=== PATIENT | female | born 1980 | race Caucasian/White ===

== ENCOUNTER 2018-02-18 15:04 | Emergency (ER) | payer OTHER ==
[2018-02-18 15:13] VITALS: BP 130/84
[2018-02-18] MEDS ORDERED: TDAP ADULT 0.5 ML INJ (BOOSTRIX) IM ONE (15:22)
--- NOTE | 2018-02-18 15:30 | EDPHY ---
General Time Seen by Provider: 02/18/18 15:21 Narrative: CHIEF COMPLAINT: Finger laceration HISTORY OF PRESENT ILLNESS: Patient presents by private vehicle with complaints of left finger laceration. This happened just prior to arrival 2:30 p.m. Today. This was an accidental laceration. She was accidentally cut her left finger tip at work with a knife. She reports moderate pain with pressure. Improved at rest. Constant duration. No numbness or tingling. No weakness. No pulsatile bleeding described. No difficulty been or straightening the finger. No injury to the nail. Tetanus is in question. She has no injury elsewhere. No other associated complaints or modifying factors. TIME OF INJURY: 2:30 p.m. Today TETANUS STATUS: Uncertain MEDICAL/SURGICAL/SOCIAL HISTORY: Uncomplicated. No anticoagulation. REVIEW OF SYSTEMS: Ten systems reviewed and are negative unless otherwise noted in the HPI EXAMINATION General Appearance: Alert, no distress Head: normocephalic, atraumatic Cardiovascular: Pulses normal throughout. Brisk cap refill on the fingers left hand. Neurological: A&O, 2 point sensory symmetric, interossei and hi lo driver strength symmetric Skin: Warm and dry, no rash. 1.5 cm curvilinear laceration to the left index finger, volar, distal phalanx. No foreign body. No involvement of the nail. No pulsatile bleeding. Extremities: Tender over the left index finger laceration. There is no bony tenderness to the finger. No foreign body. No pulsatile bleeding. Range of motion is intact including full flexion of the superficialis and profundus. DIFFERENTIAL DIAGNOSES: Including but not limited to laceration, laceration complication, laceration foreign body, laceration with deep tissue injury MDM: 3:20 p.m. Laceration to the left index finger distal phalanx without involvement of the nail of foreign body. Fully neuro intact. Full range of motion. Tdap will be updated here. I have administered a digital block. Proceed with irrigation closure. No indication for x-ray. No injury elsewhere. I considered non accidental trauma and I do not think this is likely. 4:03 p.m. Laceration has been repaired. We discussed the tissue may be nonviable given that it was mildly pale in appearance. We discussed the need for close wound follow-up in the next 2-3 days. She will need to return here if the tissue appears to be not healing or necrosis as discussed. We discussed return here in 7-10 days if the wound heals for suture removal. We discussed return here for any signs of infection, bleeding or painful range of motion. She will follow up with worker's comp clinic. Discharged home stable condition. PROCEDURE: Digital Block Indication: Finger laceration Consent: Verbal Location: Left index Anesthesia: Lidocaine 1% plain, 0.25% Marcaine plain, 5mL Description: Base of the finger was prepped. The above was infused without difficulty. Tolerated well. Good anesthesia. Complications: None PROCEDURE: Laceration repair Consent: Verbal Location: Left index, distal phalanx, palmar Length of repair: 1.5 cm Complexity: Simple Layer involvement: Single Anesthesia: Digital Irrigation: Extensive Debridement: None Procedure description: Following good anesthesia, the wound was copiously irrigated. Wound bed was explored with a sterile glove, and there is no foreign body noted. No deep tissue structure injury Wound borders were approximated well with good hemostasis. Tolerated well without complication. Suture/Staple material: 5-0 Prolene, 4 simple interrupted sutures Wound care: Routine as discussed Suture/Staple removal: 7-10 Days SUPERVISION: Independent evaluation ED Precautions: Worsening pain. Erythema, edema, cyanosis, pallor, paresthesia or anesthesia. - History Smoking Status: Never smoked - Objective Vital Signs: Initial Vital Signs Temperature (C) 98.1 F 02/18/18 15:09 Heart Rate 78 02/18/18 15:09 Respiratory Rate 16 02/18/18 15:09 Blood Pressure 130/84 H 02/18/18 15:09 O2 Sat (%) 92 02/18/18 15:09 O2 Delivery Mode Room Air Allergies/Adverse Reactions: No Known Allergies Allergy (Unverified 02/18/18 15:09) Home Medications: Medication Instructions Recorded NK [No Known Home Meds] 02/18/18 Medications Given: Discontinued Medications Diphtheria/Tetanus/Acell Pertussis (Boostrix) 0.5 ml IM .ONCE ONE Stop: 02/18/18 15:23 Last Admin: 02/18/18 15:29 Dose: 0.5 ml Departure - Departure Disposition: Home, Routine, Self-Care Clinical Impression: Laceration of left index finger Qualifiers: Encounter type: initial encounter Damage to nail status: without damage Foreign body presence: without foreign body Qualified Code(s): S61.211A - Laceration without foreign body of left index finger without damage to nail, initial encounter Condition: Good Instructions: Finger Laceration (ED) Additional Instructions: 1. Thin layer of bacitracin once daily for the next 2 days 2. Keep the wound covered while showering for the next 3 days 3. Daily wound care as discussed 4. Return here for suture removal in 7-10 days 5. Return here for signs of infection as discussed including warmth, redness, fever, drainage from the site 6. return here for increasing pain surrounding the laceration 7. Do not submerge the wound in any water, hot tub, swimming pool until sutures removed 8. The tissue may not be viable, and you may need to return here if the skin does not appear to be healing in the next 2-3 days Referrals: [facility],. [Clinic] - As per Instructions Stand Alone Forms: Work Comp Follow Up, Work Excuse Print Language: Thai
== END 2018-02-18 16:37 | disposition home or self-care (01) ==
PROC: 0HQGXZZ Repair Left Hand Skin, External Approach (ICD-10-PCS; principal; 2018-02-18)
DX: S61.211A Laceration without foreign body of left index finger without damage to nail, initial encounter (principal); W26.0XXA Contact with knife, initial encounter; Y99.0 Civilian activity done for income or pay; Z23 Encounter for immunization

== ENCOUNTER 2018-06-05 13:08 | Emergency (ER) | payer OTHER ==
--- NOTE | 2018-06-05 13:40 | EDPHY ---
H & P Stated Complaint: Food in throat Time Seen by Provider: 06/05/18 13:40 - Personal History LMP (Females 10-55): 15-21 Days Ago Current Tetanus/Diphtheria Vaccine: Yes - Medical/Surgical History Hx Asthma: No Hx Chronic Respiratory Disease: No Hx Diabetes: No Hx Cardiac Disease: No Hx Renal Disease: No Hx Cirrhosis: No Hx Alcoholism: No Hx HIV/AIDS: No Hx Splenectomy or Spleen Trauma: No Other PMH: Denies - Social History Smoking Status: Never smoked Constitutional: Initial Vital Signs Temperature (C) 36.3 C 06/05/18 13:19 Heart Rate 66 06/05/18 13:19 Respiratory Rate 18 06/05/18 13:19 Blood Pressure 122/74 H 06/05/18 13:19 O2 Sat (%) 99 06/05/18 13:19 O2 Delivery Mode Room Air Allergies/Adverse Reactions: No Known Allergies Allergy (Unverified 06/05/18 13:22) Home Medications: Medication Instructions Recorded Sucralfate [Carafate 1gm/10ml Oral 1 gm PO QID #240 ml 06/05/18 Liquid (*)] Medical Decision Making - Diagnostics Imaging: Discussed imaging studies w/ manager call center Radiologist, I viewed and interpreted images myself ED Course/Re-evaluation: CHIEF COMPLAINT: Sensation of food stuck in throat HISTORY OF PRESENT ILLNESS: The patient is a Nauruan-speaking 38 y/o female arriving with her family complaining of the sensation of food stuck in her throat. Today she was eating a dish containing fish and cactus and is concerned she could have a bone or spike in her throat. She describes a burning sensation on the left side of her throat. It is uncomfortable to swallow, but she has been able to drinking water. She has not tried to eat due to concern it will cause pain. She denies vomiting, respiratory symptoms. She is typically healthy and has not experienced these symptoms previously. History obtained via Nauruan- registered occupational therapist at bedside. REVIEW OF SYSTEMS: A comprehensive 10 system review of systems is otherwise negative aside from elements mentioned in the history of present illness and medical decision making. PHYSICAL EXAM: HR, BP, O2 Sat, RR. Temp noted General Appearance: Alert, well hydrated, appropriate, and non-toxic appearing. Head: Atraumatic without scalp tenderness or obvious injury Eyes: Pupils equal, round, reactive to light and accommodation, EOMI, no trauma , no injection. Nose: Atraumatic, no rhinorrhea, clear. Throat: Mucus membranes moist. Neck: Supple, nontender, no lymphadenopathy. Respiratory: No retractions, no distress, no wheezes, and no accessory muscle use. Lungs are clear to auscultation bilaterally. Cardiovascular: Regular rate and rhythm, no murmurs, rubs, or gallops. Good capillary refill all extremities. Gastrointestinal: Abdomen is soft, nontender, non-distended, no masses, no rebound, no guarding, no peritoneal signs. Musculoskeletal: Normal active ROM of all extremities, atraumatic. Neurological: Alert, appropriate, and interactive. Nonfocal. Skin: No rashes, good turgor, no nodules on palpation. Past medical history: Denies Past surgical history: Denies Family history: Noncontributory Social history: Nauruan-speaking. Family at bedside. DIAGNOSTICS/PROCEDURES/CRITICAL CARE TIME: Neck soft tissue x-ray: negative. DIFFERENTIAL DIAGNOSIS: The differential diagnosis for the patient's symptoms included but was not limited to esophageal abrasion, esophageal stricture, esophageal foreign body. MEDICAL DECISION MAKING: This is a healthy 38 y/o female who presents with sensation of a foreign body stuck in her esophagus after eating a fish and cactus dish earlier today. She has been able to swallow fluids with discomfort, but has not tried to eat since this. Exam is unremarkable. Plan to consult GI. 1408: Consulted with [facility]. He recommends neck soft tissue x-ray and outpatient follow up if normal. X-ray is negative. Reassessed patient and discussed findings and recommendations. She will be discharged with script for Carafate and referral to GI and ENT for follow up. Return precautions discussed. She is comfortable with this plan. Departure - Departure Disposition: Home, Routine, Self-Care Clinical Impression: Esophageal abrasion Qualifiers: Encounter type: initial encounter Qualified Code(s): S27.818A - Other injury of esophagus (thoracic part), initial encounter Condition: Good Instructions: Sucralfate (By mouth), Esophageal Foreign Body (ED) Additional Instructions: Take Carafate as prescribed for throat discomfort. Okay to eat and drink normally. Follow up with director industrial nursing in the next few days. Return to the ED for any worsening of condition. Referrals: Cristobal Smith MD [Medical Doctor] - As per Instructions Ann Miller MD [Medical Doctor] - As per Instructions Prescriptions: Sucralfate [Carafate 1gm/10ml Oral Liquid (*)] 1 gm PO QID #240 ml Print Language: Nauruan Report Scribed for: [place] Neves Report Scribed by: Jessica Lopez Date of Report: 06/05/18 Time of Report: 14:12
[2018-06-05 14:50] VITALS: BP 107/65
== END 2018-06-05 14:49 | disposition home or self-care (01) ==
DX: R13.10 Dysphagia, unspecified (principal)